=== PATIENT | female | born 1950 | race Caucasian/White ===

== ENCOUNTER 2018-07-29 08:45 | Day surgery (SDC) | payer OTHER ==
[2018-07-29] MEDS ORDERED: Zoledronic Acid/Mannitol/Water 5 MG/100 ML INFUS.BOT IV ONE (09:00)
--- OUTSIDE RECORDS SUMMARY | 2018-07-29 09:08 | XMS REPORT | Clinical Summary ---
:1950 Author Organization [facility] Address [address] [place] [id number] Care Team Providers Name Role Phone Asked, No Pcp Primary Care Provider Unavailable Allergies Not on File Medications Not on file Active Problems Not on file Encounters Date Type Specialty Care Team Description 03/01/2018 Hospital Encounter Radiology Real Holliday, Nausea; Heartmatty; Essential hypertension, benign 03/01/2018 Transcribe Orders Access Real Holliday, Nausea (Primary Dx); MD Yancey; Essential hypertension, benign after 07/28/2017 Social History Tobacco Use Types Packs/Day Years Used Date Never Assessed Sex Assigned at Date Recorded Not on file Job Start Date Occupation Industry Not on file Not on file Not on file Travel History Travel Start Travel End No recent travel history available. Last Filed Vital Signs Not on file Plan of Treatment Health Maintenance Due Date Last Done Comments BREAST CANCER SCREENING 1999 COLON CANCER SCREENING 1999 SHINGLES VACCINES (#1) 1999 65+ PNEUMOCOCCAL VACCINE (1 of 2 - PCV13) 2014 PNEUMOCOCCAL POLYSACCHARIDE VACCINE AGE 65 AND OVER 2014 INFLUENZA VACCINE 11/18/2018 Procedures Procedure Name Priority Date/Time Associated Diagnosis Comments US ABDOMEN COMPLETE Routine 03/01/2018 1:07 PM Nausea Results for this CONSULAR OFFICER Heartburn procedure are in Essential the results hypertension, benign section. after 07/28/2017 Results US Abdomen Complete (03/01/2018 1:07 PM CONSULAR OFFICER) Narrative Performed At EXAM: US ABDOMEN COMPLETE RADIANT CLINICAL DATA:R11.0 Nausea, R12 Heartburn, GALLSTONES COMPARISON: NONE. FINDINGS: LIVER:Normal in echogenicity and contour. No mass or intrahepatic ductal dilatation. MPV: Demonstrates normal hepatopetal flow. MPV measures 0.8 cm in diameter, within normal limits. GALLBLADDER:Unremarkable without evidence of calculi, wall thickening or pericholecystic fluid. CBD: Common duct measures 6-7 mm in diameter, within normal limits.. PANCREAS:Visualized portions are unremarkable.. SPLEEN: Homogenous in echotexture and not enlarged measuring 10.5 cm. RIGHT KIDNEY: Normal in echogenicity and size measuring 11.9 x 4.9 x 5.8 cm. Simple cyst measuring 1.8 x 1.4 x 1.3 cm. No hydronephrosis. LEFT KIDNEY: Normal in echogenicity and size measuring 10.3 x 4.6 x 4.2 cm. No mass, calculi or hydronephrosis. AORTA:Visualized portions of the abdominal aorta are without ectasia. IVC:Visualized portions are unremarkable. ASCITES: None. PLEURAL EFFUSION:None. IMPRESSION: 1.No sonographic evidence of cholelithiasis. 2.Simple right renal cyst. I personally reviewed the images and the resident's findings and agree with the final report. [facility]-[id number] Procedure Note Hm Interface, Radiology Results Incoming - 03/01/2018 4:31 PM CONSULAR OFFICER EXAM: US ABDOMEN COMPLETE CLINICAL DATA: R11.0 Nausea, R12 Heartburn, GALLSTONES COMPARISON: NONE. FINDINGS: LIVER: Normal in echogenicity and contour. No mass or intrahepatic ductal dilatation. MPV: Demonstrates normal hepatopetal flow. MPV measures 0.8 cm in diameter, within normal limits. GALLBLADDER: Unremarkable without evidence of calculi, wall thickening or pericholecystic fluid. CBD: Common duct measures 6-7 mm in diameter, within normal limits.. PANCREAS: Visualized portions are unremarkable.. SPLEEN: Homogenous in echotexture and not enlarged measuring 10.5 cm. RIGHT KIDNEY: Normal in echogenicity and size measuring 11.9 x 4.9 x 5.8 cm. Simple cyst measuring 1.8 x 1.4 x 1.3 cm. No hydronephrosis. LEFT KIDNEY: Normal in echogenicity and size measuring 10.3 x 4.6 x 4.2 cm. No mass, calculi or hydronephrosis. AORTA: Visualized portions of the abdominal aorta are without ectasia. IVC: Visualized portions are unremarkable. ASCITES: None. PLEURAL EFFUSION: None. IMPRESSION: 1. No sonographic evidence of cholelithiasis. 2. Simple right renal cyst. I personally reviewed the images and the resident's findings and agree with the final report. [id number] Performing Organization Address City/State/Zipcode Phone Number [facility] [phone] [place] [address] after 07/28/2017 Insurance Payer Benefit Plan / Group Subscriber ID Type Phone Address [employer] MED[employer]ARE [employer] MEDICARE xxxxxxxxx HMO ([place]) [place] [address] Advance Directives Patient has advance care planning documents on file. For more information, please contact:Dmitry Mcintyre[address] [place] [address]
--- OUTSIDE RECORDS SUMMARY | 2018-07-29 09:08 | XMS REPORT ---
:1950 [facility] Address [address] [place] [address] Dr. Briceno [address] [place] [id number] Care Team Providers Name Role Phone Unavailable Unavailable Unavailable Problems This patient has no known problems. Allergies, Adverse Reactions, Alerts This patient has no known allergies or adverse reactions. Medications This patient has no known medications.
== END 2018-07-29 09:30 | disposition home or self-care (01) ==
LOC: DS 08:45
PROVIDERS: ATTEND Specialist
DX: M81.0 Age-related osteoporosis without current pathological fracture (principal)
CPT/HCPCS: 96365; J3489

== ENCOUNTER 2020-06-11 07:32 | Day surgery (SDC) | payer OTHER ==
[2020-06-11] MEDS ORDERED: Zoledronic Acid/Mannitol/Water 5 MG/100 ML INFUS.BOT IV ONE (08:30)
[2020-06-11 09:57] VITALS: BP 124/71; TEMP 98.1; O2SAT 98
[2020-06-11 10:00] VITALS: BMI 20.2
--- NOTE | 2020-06-11 11:50 | RAD REPORT ---
EXAM DESCRIPTION: GREGORY - 3D SCR GREGORY BILAT W/CAD - 06/11/2020 8:27 am COMPARISON: 3D SCR GREGORY BILAT W/CAD dated 06/17/2018; MAMMO DIGITAL SCR BILAT W CAD dated 08/11/2013; M AMMO DIGITAL SCR BILAT W CAD dated 03/19/2012 TECHNIQUE: CC and MLO views of each breast were obtained utilizing digital breast 3D tomosynthesis a nd 2D imaging. Computer-aided detection was utilized. FINDINGS: Scattered fibroglandular densities are seen. No suspicious new finding is evident. IMPRESSION: 1. No mammographic evidence for malignancy. 2. BI-RAD: 2, benign findings. 3. Annual mammography is the recommendation for the patient. ResultCode: B *A negative x-ray report should not delay biopsy if a dominant or clinically suspicious mass is prese nt. 4.8% of cancers are not identified by x-ray. *A negative report may reinforce clinical impression. *Adenosis and dense breasts may obscure an underlying neoplasm. *False positive reports average 6-10%.
== END 2020-06-11 09:25 | disposition home or self-care (01) ==
LOC: RAD 07:32
PROVIDERS: ATTEND Obstetrics & Gynecology
DX: Z12.31 Encounter for screening mammogram for malignant neoplasm of breast (principal); M81.0 Age-related osteoporosis without current pathological fracture
CPT/HCPCS: 77067; 77063; 96365; J3489

== ENCOUNTER 2021-09-18 09:32 | Day surgery (SDC) | payer OTHER ==
[2021-09-18] MEDS ORDERED: Zoledronic Acid/Mannitol/Water 5 MG/100 ML INFUS.BOT IV ONE (10:00)
[2021-09-18 10:54] VITALS: BP 126/68; TEMP 98; O2SAT 98
== END 2021-09-18 10:20 | disposition home or self-care (01) ==
LOC: DS 09:32
PROVIDERS: ATTEND Internal Medicine
DX: M81.0 Age-related osteoporosis without current pathological fracture (principal); R13.10 Dysphagia, unspecified
CPT/HCPCS: 96365; J3489